=== PATIENT | female | born 1990 | race African-American/Black ===

== ENCOUNTER 2017-03-28 22:01 | Emergency (ER) | payer BC, OTHER ==
--- NOTE | ~2017-03-28 | US61 ---
[facility] A Service of [facility] & [facility] RADIOLOGY TEXT RESULTS PATIENT: BHAVANA VALDEZ LOCATION: SED : 88 UNIT #: [id number] AGE: [address]: Alexis Isidro MD SEX: F ORDER DR: [id number] [address] [address] [id number] MR#: [id number] Acc #: [id number] NAME: BHAVANA VALDEZ. : 1990 SEX: F STUDY DATE/TIME: 03/29/2017 0:19 UNIT: SED ROOM: STUDY DESCRIPTION: US /Mat <14Wk / Attending Physician: Alexis Isidro M.D. Ordering Physician: Alexis Isidro M.D. Primary Care Physician: No Primary Care Physician MEDICAL IMAGING REPORT This report is preliminary unless electronic signature is present. EXAM Transabdominal and transvaginal pelvic ultrasound DATE 03/29/2017 HISTORY 26-year-old female with right lower quadrant abdominal pain for 1 day. No bleeding or spotting. History of polycystic ovary syndrome. Unsure of last menstrual period, but believe it was in the mid to late December. Beta HCG quantitative 14,542. COMPARISON CT abdomen and pelvis without contrast 01/18/2012. FINDINGS Transabdominal imaging was performed for generalized visualization of pelvic structures while transvaginal imaging was performed for more detailed evaluation of the adnexa. The uterus measures approximately 9.2 x 4.4 x 5.8 cm. Endometrial bilayer thickness difficult to evaluate, measures probably close to 14-15 mm. No focal endometrial or myometrial lesion is seen. No fluid is seen within the endometrial canal. A 2.1 x 2.2 x 2.3 cm rounded lesion with echogenic rim and central hypoechogenicity is demonstrated at the right posterolateral margin of the uterus. It is nonspecific. Extrauterine gestational sac should be considered. However, this structure contains no discernible yolk sac or pole. No pelvic free fluid is identified. Both ovaries have a normal sonographic appearance without cystic or solid abnormality and demonstrate normal color flow. The right ovary measures [facility] A Service of [facility] & [facility] RADIOLOGY TEXT RESULTS PATIENT: BHAVANA VALDEZ LOCATION: [facility] : [birth year] UNIT #: [id number] AGE: [address]: Alexis Isidro MD SEX: F ORDER DR: 3.1 x 4.0 x 4.9 cm, and the left ovary measures 3.0 x 2.6 x 4.7 cm. IMPRESSION 1. No intrauterine gestational sac is seen. Findings are suspicious for an extrauterine gestational sac to the right of the uterus, measuring approximately 2.3 cm maximally. However, no discernible pole or yolk sac is seen within it. Obstetric consultation with repeat imaging to verify would be recommended. 2. Normal sonographic appearance of each ovary without cystic or solid abnormality. Normal flow was documented in each ovary. Dictated by... Colleen Garza M.D. THIS IS AN ELECTRONICALLY VERIFIED REPORT Colleen Garza M.D. at 03/29/2017 10:00 PM MIGUEL A/garry TD: 03/29/2017 07:13 JOB #: [id number] MEDICAL IMAGING REPORT Page 1 of 1
[~2017-03-28 22:01] MED LIST: ANUSOL-HC SUPP25 M1 PR; BENADRYL25 M3 PO; COLACE50 MG/5 M1 PO; DOXYCYCLINE HY100 M3 PO; FAMOTIDINE PO; LISINOPRIL; NO MEDICATIONS; PREDNISONE PO; PYRIDIUM100 MG PO; SEPTRA SUSPENS100 ML PO; ULTRAM PO; VOLTAREN75 MG PO; ZITHROMAX PO; ZOFRAN ODT4 MG PO
[2017-03-28 22:11] LABS: URINE SOURCE CLEAN CATCH
[2017-03-28 22:13] LABS: URINE APPEARANCE HAZY; URINE BILIRUBIN NEG (NEG); URINE BLOOD 1+ (NEG); URINE COLOR YELLOW; URINE GLUCOSE NEG (NORM); URINE KETONE NEG (NEG); URINE LEUKOCYTE ESTERASE TRACE (NEG); URINE NITRATE NEG (NEG); URINE PROTEIN NEG (NEG); URINE SPECIFIC GRAVITY 1.025 (1.003-1.035)
[2017-03-28 22:14] LABS: MICRO INDICATED? YES
[2017-03-28 22:15] LABS: CULTURE INDICATED? YES; URINE BACTERIA 1+ (NEG); URINE MUCUS PRESENT; URINE RBC 0-2 /[HPF] (0-2); URINE SQUAMOUS EPITHELIAL CELL MODERATE /[HPF]; URINE TRANSITIONAL EPI CELLS FEW /[HPF]
[2017-03-28 22:20] LABS: BASOPHIL# 0.1 X10e3 (0-0.3); BASOPHIL% 0.6 % (0-2.5); EOSINOPHIL# 0.3 X10e3 (0-0.7); EOSINOPHIL% 3.6 % (0.0-7.0); HEMATOCRIT 38.4 % (35.0-45.0); HEMOGLOBIN 12.5 gm/dL (12.0-16.0); LYMPHOCYTE# 2.7 X10e3 (1.0-3.5); LYMPHOCYTE% 31.7 % (17.0-45.0); MEAN CORPUSCULAR HEMOGLOBIN 29.7 PG (28-34); MEAN CORPUSCULAR HGB CONC 32.6 g/dL (30-36); MONOCYTE# 0.6 X10e3 (0-1.0); MONOCYTE% 6.7 % (3.0-12.0); NEUTROPHIL# 4.9 X10e3 (1.5-7.1); NEUTROPHIL% 57.4 % (40-75); PLATELET COUNT 318 X10e3 (140-420); RED BLOOD COUNT 4.22 X10e (3.90-5.30); RED CELL DISTRIBUTION WIDTH 13.1 % (11.0-15.5); WHITE BLOOD COUNT 8.5 X10e3 (4.0-10.5)
[2017-03-28 22:21] LABS: DIFF IND NO
[2017-03-28 22:35] LABS: ALBUMIN SERUM 3.8 g/dL (3.5-5.0); ALKALINE PHOSPHATASE 40 U/L (32-92); ALT (SGPT) 16 U/L (10-40); AST (SGOT) 19 U/L (10-42); BILIRUBIN,TOTAL 0.2 mg/dL (0.2-2.0); BLOOD UREA NITROGEN 12 mg/dL (9-23); BUN/CREATININE RATIO 13.33; CALCIUM SERUM 9.2 mg/dL (8.4-10.2); CARBON DIOXIDE 24 mmol/L (22-31); CHLORIDE 107 mmol/L (100-111); CREATININE SERUM 0.9 mg/dL (0.6-1.4); GLOM FILT RATE Estimated 101.6 mL/min (>60); GLUCOSE FASTING 89 mg/dL (70-110); LIPASE 26 U/L (22-51); POTASSIUM 3.8 mmol/L (3.5-5.1); PROTEIN TOTAL SERUM 7.4 g/dL (6.0-8.3); SODIUM 137 mmol/L (135-145)
[2017-03-28 22:40] LABS: BILIRUBIN, DIRECT <0.1 mg/dL (0.0-0.2); BILIRUBIN,INDIRECT 0.1 mg/dL (0.0-0.9)
[2017-04-01 01:56] LABS: CHLAMYDIA TRACH Not Detected (Not Detected); N GONOR Not Detected (Not Detected)
== END 2017-03-29 02:44 | disposition hospice, home (50) ==
LOC: SED 22:01
PROVIDERS: Emergency Medicine
DX: O99.89 Other specified diseases and conditions complicating pregnancy, childbirth and the puerperium (principal); R10.2 Pelvic and perineal pain; R03.0 Elevated blood-pressure reading, without diagnosis of hypertension; Z88.6 Allergy status to analgesic agent
CPT/HCPCS: 36415; 76801; 76817; 80048; 80076; 81003; 83690; 84702; 85025; 87086; 87491; 87591; 87808; 87905; 99285